=== PATIENT | male | born 1950 | race Caucasian/White ===

== ENCOUNTER 2022-01-03 10:24 | Emergency (ER) | payer MEDICARE, BC ==
[~2022-01-03] VITALS: Ht 170.2 cm; Wt 100.0 kg
[2022-01-03] MEDS ORDERED: ALLOPURINOL300 MG PO (10:53)
[2022-01-03] MEDS ORDERED: TAMSULOSIN0.4 MG PO (10:54)
[2022-01-03] MEDS ORDERED: KLOR-CON M2020 MEQ PO (10:54)
[2022-01-03] MEDS ORDERED: DITROPAN XL10 MG PO (10:55)
[2022-01-03] MEDS ORDERED: GLIPIZIDE ER5 MG PO (10:55)
[2022-01-03] MEDS ORDERED: ZETIA10 MG PO (10:55)
[2022-01-03] MEDS ORDERED: PROAIR DIG108 MCG/AC (10:56)
[2022-01-03] MEDS ORDERED: LORATADINE10 M1 PO (10:57)
[2022-01-03] MEDS ORDERED: CRESTOR40 MG PO (10:57)
[2022-01-03] MEDS ORDERED: FLONASE SE27.5 MCG/S (10:58)
[2022-01-03] MEDS ORDERED: MUCINEX1200 MG PO (10:58)
[2022-01-03] MEDS ORDERED: FENOFIBRATE145 MG PO (10:58)
[2022-01-03] MEDS ORDERED: ALBUTEROL1 IN (10:59)
[2022-01-03] MEDS ORDERED: NITROGLYCERIN0.4 MG (11:00)
[2022-01-03] MEDS ORDERED: LANTUS100 UNIT SC (11:01)
[2022-01-03] MEDS ORDERED: FUROSEMIDE20 MG PO (11:02)
[2022-01-03] MEDS ORDERED: HUMALOG100 UNIT/M SC (11:02)
[2022-01-03] MEDS ORDERED: OMEPRAZOLE DR40 MG (11:03)
[2022-01-03] MEDS ORDERED: KAPSPARGO SPRIN25 MG (11:03)
[2022-01-03] MEDS ORDERED: CVS GAS RELIEF (11:03)
[2022-01-03] MEDS ORDERED: TRAZODONE50 MG PO (11:04)
[2022-01-03] MEDS ORDERED: MONTELUKAST SOD10 MG PO (11:04)
[2022-01-03] MEDS ORDERED: ALFUZOSIN HCL E10 MG PO (11:04)
[2022-01-03] MEDS ORDERED: JARDIANCE25 MG (11:05)
[2022-01-03] MEDS ORDERED: MULTI VIT PO (11:05)
[2022-01-03 13:11] LABS: HEMATOCRIT 41.1 % (39.0-50.0); HEMOGLOBIN 12.9 g/dl (14.0-18.0); IMMATURE GRANULOCYTES 0.3 % (0.0-5.0); MEAN CORPUSCULAR HGB 31.1 pG CALC (26.0-32.0); MEAN CORPUSCULAR HGB CONC 31.4 g/dL CAL (32.0-36.0); NEUT# 4.01 thou/uL (1.82-7.42); RED BLOOD COUNT 4.15 mill/uL (4.70-6.10); RED CELL DISTRI WIDTH 14.2 % (11.5-15.5)
[2022-01-03 13:21] LABS: ALBUMIN 3.9 g/dL (3.2-5.0); ALKALINE PHOSPHATASE 79 u/l (38-126); ANION GAP 13 (6-22 (CALC)); BILIRUBIN, TOTAL 0.3 mg/dL (0.0-1.4); BUN 25 mg/dL (8-23); BUN/CREATININE RATIO 15 (12-20 (CALC)); CARBON DIOXIDE 27 mmol/l (22-30); CHLORIDE 106 mmol/l (95-108); CREATININE 1.7 mg/dL (0.7-1.3); GFR 40 ML/MIN (>=60 (CALC)); GFR FOR AFR.AMER. 48 ML/MIN (>=60 (CALC)); POTASSIUM 4.5 mmol/l (3.5-5.1); SGOT/AST 25 u/l (19-48); SODIUM 141 mmol/l (137-146)
[2022-01-03 13:31] VITALS: BP 134/85
[2022-01-03] MEDS ORDERED: ZPAK PO (16:44)
[2022-01-03] MEDS ORDERED: TESSALON PERLE100 MG PO (16:44)
[2022-01-03] MEDS ORDERED: HYCODAN1 ML PO (16:44)
[2022-01-03] MEDS ORDERED: ATROVENT H17 MCG/ACT IN (16:48)
== END 2022-01-03 17:05 | disposition home or self-care (01) ==
LOC: ED 10:24
PROVIDERS: Emergency Medicine
DX: J44.9 Chronic obstructive pulmonary disease, unspecified (principal); I13.0 Hypertensive heart and chronic kidney disease with heart failure and stage 1 through stage 4 chronic kidney disease, or unspecified chronic kidney disease; I50.9 Heart failure, unspecified; E11.22 Type 2 diabetes mellitus with diabetic chronic kidney disease; N18.30 Chronic kidney disease, stage 3 unspecified; E78.5 Hyperlipidemia, unspecified; M10.9 Gout, unspecified; Z95.1 Presence of aortocoronary bypass graft; Z79.84 Long term (current) use of oral hypoglycemic drugs; Z79.4 Long term (current) use of insulin; Z20.822 Contact with and (suspected) exposure to COVID-19

== ENCOUNTER 2022-01-15 09:05 | Inpatient (IN) | payer MEDICARE, BC ==
[~2022-01-15] VITALS: Ht 170.2 cm; Wt 98.4 kg
[~2022-01-15 09:05] MED LIST: ALBUTEROL1 IN; ALFUZOSIN HCL E10 MG PO; ALLOPURINOL300 MG PO; ATROVENT H17 MCG/ACT IN; CRESTOR40 MG PO; CVS GAS RELIEF; DITROPAN XL10 MG PO; FENOFIBRATE145 MG PO; FLONASE SE27.5 MCG/S; FUROSEMIDE20 MG PO; GLIPIZIDE ER5 MG PO; HUMALOG100 UNIT/M SC; HYCODAN1 ML PO; JARDIANCE25 MG; KAPSPARGO SPRIN25 MG; KLOR-CON M2020 MEQ PO; LANTUS100 UNIT SC; LORATADINE10 M1 PO; MONTELUKAST SOD10 MG PO; MUCINEX1200 MG PO; MULTI VIT PO; NITROGLYCERIN0.4 MG; OMEPRAZOLE DR40 MG; PROAIR DIG108 MCG/AC; TAMSULOSIN0.4 MG PO; TESSALON PERLE100 MG PO; TRAZODONE50 MG PO; ZETIA10 MG PO; ZPAK PO
--- NOTE | 2022-01-15 09:24 | NUR ---
PATIENT TO ROOM 15 VIA WHEELCHAIR
[2022-01-15 11:02] LABS: HEMATOCRIT 39.2 % (39.0-50.0); HEMOGLOBIN 12.6 g/dl (14.0-18.0); IMMATURE GRANULOCYTES 0.4 % (0.0-5.0); MEAN CELL VOLUME 97.5 fL CALC (80.0-100.0); MEAN CORPUSCULAR HGB 31.3 pG CALC (26.0-32.0); MEAN CORPUSCULAR HGB CONC 32.1 g/dL CAL (32.0-36.0); NEUT# 6.42 thou/uL (1.82-7.42); RED BLOOD COUNT 4.02 mill/uL (4.70-6.10); RED CELL DISTRI WIDTH 14.2 % (11.5-15.5)
[2022-01-15 11:08] LABS: ALBUMIN 4.1 g/dL (3.2-5.0); BILIRUBIN, TOTAL 0.5 mg/dL (0.0-1.4); CREATININE 1.8 mg/dL (0.7-1.3); POTASSIUM 4.2 mmol/l (3.5-5.1); TOTAL PROTEIN 6.9 g/dL (6.3-8.2)
[2022-01-15 11:27] LABS: URINE BILIRUBIN - DIPSTICK NEGATIVE (NEGATIVE); URINE BLOOD DIPSTICK NEGATIVE (NEGATIVE); URINE COLOR YELLOW; URINE GLUCOSE - DIPSTICK >=1000 mg/dL (NEGATIVE); URINE KETONE NEGATIVE (NEGATIVE); URINE LEUK ESTERASE NEGATIVE (NEGATIVE); URINE PROTEIN - DIPSTICK NEGATIVE (NEG-TRACE); URINE UROBILINOGEN - DIPSTICK 0.2 E.U./dL (0.2)
[2022-01-15 11:29] LABS: URINE NITRITE - DIPSTICK NEGATIVE (Negative)
--- NOTE | 2022-01-15 12:41 | NUR ---
Reassessment of patient completed. No distress noted.
--- NOTE | 2022-01-15 13:07 | NUR ---
Reassessment of patient completed. No distress noted.
--- NOTE | 2022-01-15 19:30 | NUR ---
Reassessment of patient completed. No distress noted.
--- NOTE | 2022-01-15 20:02 | NUR ---
Reassessment of patient completed. No distress noted.
--- NOTE | 2022-01-15 21:00 | NUR ---
Reassessment of patient completed. No distress noted.
--- NOTE | 2022-01-15 22:00 | NUR ---
Reassessment of patient completed. No distress noted.
--- NOTE | 2022-01-15 23:00 | NUR ---
Reassessment of patient completed. No distress noted.
[2022-01-15 23:33] VITALS: BP 116/75
--- NOTE | 2022-01-15 23:37 | NUR ---
REPORT CALLED TO FLOOR PT TRANSFERRED VIA WC
--- NOTE | 2022-01-16 | NUR ---
PATIENT ADMITTED FROM ER VIA WHEELCHAIR WITH ER STAFF IN ATTENDANCE-O2 VIA NASAL CANNULA IN PLACE. PATIENT MIN ASSIST TO BED. AWAKE ALERT AND ORIENTEDX3. PATIENT STATES THAT HE IS A SNOWBIRD AND HE HAS HAD INCREASING SOB OVER THE LAST COUPLE OF WEEKS WELL INCREASED SWELLING IN HIS FEET AND HE CALLED HIS MD IN [facility] WHO TOLD HIM TO COME TO THE ER. PATIENT ADMITTED FOR CHF, COPD. PATIENT DOES USE O2 AT HOME-USUALLY AT 2LPM. O2 SAT IS 94% AT THIS TIME WITH O2 AT 3LPM. TELE MONITOR IN PLACE READING SR-79 1SR DEGREE AVB. PATIENT WITH PERSISTANT NON-PRODUCTIVE COUGH. PATIENT WITH BLE SWELLING-1+-PT STATES MUCH IMPROVED SINCE COMING TO THE ER AND GETTING DIURETICS. ENCOURAGED PATIENT TO ELEVATED FEET WHEN POSSIBLE. ABD IS SOFT WITH LAST BM-01/15/22. DENIES ANY DIFFICULTY WITH URINATION. INSTRUCTED THAT WE NEED TO MEASURE URINE IN U RINAL FOR STRICTI&O-WILL TO REINFORCE WITH PATIENT. DAILY WEIGHTS. GLUCOSE MONITOR WAS 210. OFFER HEALTHY CHOICE MEAL BUT PATIENT DECLINED AT THIS TIME. ORIENTED PATIENT TO ROOM AND SURROUNDINGS. INSTRUCTED ON USE OF NURSE CALL LIGHT AND TV REMOTE. SAFETY PRECAUTIONS REINFORCED. TROP WAS DRAWN AND WAS NEG. CALL LIGHT IN REACH. WILL CONT TO MONITOR
[2022-01-16 04:00] VITALS: BP 102/55
--- NOTE | 2022-01-16 04:20 | NUR ---
PATIENT RESTING IN BED AT THIS TIME WITH O2 VIA NASAL CANNULA IN PLACE. RESPS ARE EVEN AND UNLABORED AT THIS TIME. TELE MONITOR IN PLACE WITH LAST READING BEING SR-95 WITH 1ST DEGREE AVB. SALINE LOCK TO LEFT AC INTACT. CALL LIGHT IN REACH. WILL CONT TO MONITOR.
[2022-01-16 06:26] LABS: HEMATOCRIT 40.1 % (39.0-50.0); HEMOGLOBIN 12.9 g/dl (14.0-18.0); MEAN CELL VOLUME 97.8 fL CALC (80.0-100.0); MEAN CORPUSCULAR HGB 31.5 pG CALC (26.0-32.0); MEAN CORPUSCULAR HGB CONC 32.2 g/dL CAL (32.0-36.0); RED BLOOD COUNT 4.1 mill/uL (4.70-6.10); RED CELL DISTRI WIDTH 14.2 % (11.5-15.5)
[2022-01-16 06:54] LABS: CHOLESTEROL HDL RATIO 3.8 (<4.4 (CALC)); MAGNESIUM 2.4 mg/dL (1.6-2.3); POTASSIUM 4.4 mmol/l (3.5-5.1)
--- NOTE | 2022-01-16 07:25 | NUR ---
Patient is screened for intervention and may benefit from PT consult if medical agrees
[2022-01-16 08:34] VITALS: BP 132/81
--- NOTE | 2022-01-16 08:34 | NUR ---
PT SITTING IN BED WATCHING TV. A&O X3. O2 VIA NC @3L IN PLACE. PT REPORTS USING IT PRN AT HOME WHEN SOB OCCURS. EXERTIONAL SOB NOTED. DIMINISHED BREATH SOUNDS HEARD UPON AUSCULTATION. ACTIVE BOWEL SOUNDS X4 QUADRANTS. 600 CC OF CLEAR YELLOW URINE EMPTIED FROM URINAL. #20G LAC HEALTHY AND PATENT. PALLETIZER IN PLACE. MED REC TO BE UPDATED. ASSESSMENT COMPLETED. DISCUSSED POC. CALL LIGHT WITHIN REACH.
[2022-01-16 10:47] VITALS: BP 111/79
[2022-01-16 15:07] VITALS: BP 120/57
--- NOTE | 2022-01-16 17:21 | NUR ---
PT PROVIDED WITH HOT BLACK TEA PER REQUEST. NO OTHER NEEDS AT THIS TIME. CALL LIGHT WITHIN REACH.
[2022-01-16 19:00] VITALS: BP 136/53
--- NOTE | 2022-01-16 19:40 | NUR ---
PT SITTING ON SIDE OF BED, NO SIGNS OF DISTRESS NOTED, RESP EVEN AND UNLABORED. PT ON O2 3L NC, PT STATES HE IS HOME DEPENDENT. 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 RT CALLED TO BEDSIDE FOR NEB TX, SKIN INTACT. TRACE EDEMA TO BLE, PT STATES IT HAS "GOTTEN BETTER". ASSESSMENT REVIEW COMPLETED, CALL LIGHT IN REACH,CONTINUE TO MONITOR.
--- NOTE | 2022-01-16 21:40 | NUR ---
PT SITTING ON SIDE OF BED WATCHING TV, PT MEDICATED PER MAR. NO SIGNS OF DISTRESS NOTED, RESP EVEN AND UNLABORED. CALL LIGHT IN REACH,CONTINUE TO MONITOR.
--- NOTE | 2022-01-16 23:43 | NUR ---
PT SITTING ON SIDE OF BED, COUGHING. PT GIVEN ROBITUSSIN, NO SIGNS OF DISTRESS NOTED, RESP EVEN AND UNLABORED.PT REQUESTING HOT TEA, PROVIDED REQUESTED. CALL LIGHT IN REACH,CONTINUE TO MONITOR.
[2022-01-17] VITALS: BP 129/64
[2022-01-17 04:00] VITALS: BP 131/66
--- NOTE | 2022-01-17 05:15 | NUR ---
PT RESTING IN BED, NO SIGNS OF DISTRESS NOTED, RESP EVEN AND UNLABORED. PT MEDICATED WITH BUMEX, PT VOICES NO NEEDS OR COMPLAINTS AT THIS TIME, CALL LIGHT IN REACH,CONTINUE TO MONITOR.
[2022-01-17 06:00] LABS: HEMATOCRIT 37.8 % (39.0-50.0); HEMOGLOBIN 12.2 g/dl (14.0-18.0); MEAN CELL VOLUME 98.7 fL CALC (80.0-100.0); MEAN CORPUSCULAR HGB 31.9 pG CALC (26.0-32.0); MEAN CORPUSCULAR HGB CONC 32.3 g/dL CAL (32.0-36.0); RED BLOOD COUNT 3.83 mill/uL (4.70-6.10); RED CELL DISTRI WIDTH 14.4 % (11.5-15.5)
[2022-01-17 06:20] LABS: CREATININE 1.8 mg/dL (0.7-1.3); MAGNESIUM 2.5 mg/dL (1.6-2.3); POTASSIUM 4.5 mmol/l (3.5-5.1)
[2022-01-17] MEDS ORDERED: TOPROL XL25 M1 PO (07:50)
[2022-01-17] MEDS ORDERED: ZETIA10 MG PO (07:51)
[2022-01-17] MEDS ORDERED: GLIPIZIDE ER5 MG PO (07:52)
--- NOTE | 2022-01-17 09:03 | NUR ---
PT SITTING ON THE SIDE OF THE BED. A&O X3. NO DISTRESS NOTED. O2 VIA NC @3L IN PLACE. CORASE/DIMINISHED BREATH SOUNDS UPON AUSCULTATION. ACTIVE BOWEL SOUNDS X4 QUADRANTS. EDEMA IMPROVED IN BLE. OFFICE ASST COUGH NOTED; PT REPORTS SOME IMPROVEMENT WITH THE COUGH. IV HEALTHY AND PATENT. 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 ASSESSMENT COMPLETED. DISCUSSED POC. CALL LIGHT WITHIN REACH.
[2022-01-17 09:04] VITALS: BP 122/69
[2022-01-17 10:52] VITALS: BP 102/53
--- NOTE | 2022-01-17 11:31 | NUR ---
PT SITTING IN RECLINER. NO NEEDS AT THIS TIME. O2 REMAINS UNCHANGED. CALL LIGHT WITHIN REACH.
[2022-01-17 16:32] VITALS: BP 150/85
--- NOTE | 2022-01-17 18:09 | NUR ---
PT SITTING IN RECLINER. O2 REMAINS UNCHANGED. NO NEEDS AT THIS TIME. CALL LIGHT WITHIN REACH.
[2022-01-17 19:58] VITALS: BP 117/47
--- NOTE | 2022-01-17 20:10 | NUR ---
PT SITTING ON SIDE OF BED, NO SIGNS OF DISTRESS NOTED, RESP EVEN AND UNLABORED. PT ALERT AND ORIENTED X3, DISCUSSED POC, PT DENIES AND NEEDS OR COMPLAINTS AT THIS TIME. O2 3L NC, ASSESSMENT REVIEW COMPLETED, PT MEDICATED PER MAR, EDEMA NOTED TO BLE ENCOURAGED PT TO ELEVATE EXTREMITIES, CALL LIGHT IN REACH,CONTINUE TO MONITOR.
[2022-01-18] VITALS: BP 124/73
--- NOTE | 2022-01-18 00:32 | NUR ---
PT CALLED REQUESTING LOZENGE, NO SIGNS OF DISTRESS NOTED, RESP EVEN AND UNLABORED. CALL LIGHT IN REACH,CONTINUE TO MONITOR.
[2022-01-18 03:56] VITALS: BP 112/61
--- NOTE | 2022-01-18 04:00 | NUR ---
PT RESTING IN BED, NO SIGNS OF DISTRESS NOTED, RESP EVEN AND UNLABORED. PT VOICES NO NEEDS OR COMPLAINTS AT THIS TIME. CALL LIGHT IN REACH, CONTINUE TO MONITOR.
[2022-01-18 05:35] LABS: CREATININE 2.2 mg/dL (0.7-1.3); POTASSIUM 4.4 mmol/l (3.5-5.1)
[2022-01-18 08:44] VITALS: BP 126/65
[2022-01-18 15:48] VITALS: BP 145/78
--- NOTE | 2022-01-18 20:00 | NUR ---
RECEIVED REPORT FROM NURSE BRET, PATIENT RESTING IN BEDM WATCHING TV, ON O2 @ 3 LPM VIA NC, TELEMETRY ST 104, NON PRODUCTIVE COUGH, COARSE LUNG SOUNDS, HAS SALINE LOCK ON LAC, PATENT FLUSHES WELL, ACTIVE BOWEL SOUNDS 01/17, CALL LIGHT AT REACH.
[2022-01-18 20:23] VITALS: BP 127/74
[2022-01-18 23:17] VITALS: BP 132/73
--- NOTE | 2022-01-18 23:18 | NUR ---
PATIENT RESTING IN BED EYES CLOSED, REMAINS ON O2 @ 3LPM VIA NC, STILL WITH NON PRODUCTIVE COUGH, BREATHING UNLABORED, CALL LIGHT AT REACH.
--- NOTE | 2022-01-19 02:25 | NUR ---
PATIENT HAS COUGHING EPISODES, PRN COUGH MEDICATION, LOZENGE AND BREATHING TREATMENT GIVEN.
--- NOTE | 2022-01-19 04:00 | NUR ---
PATIENT SITTING IN CHAIR REMAINS ON O2 @ 3LPM VIA NC, VITAL SIGNS TAKEN, PATIENT WEIGHED AND RECORDED CURRENTLY WATCHING TV, CALL LIGHT AT REACH.
[2022-01-19 04:35] VITALS: BP 115/70
[2022-01-19 05:19] LABS: HEMATOCRIT 40.1 % (39.0-50.0); HEMOGLOBIN 12.5 g/dl (14.0-18.0); MEAN CELL VOLUME 99.8 fL CALC (80.0-100.0); MEAN CORPUSCULAR HGB 31.1 pG CALC (26.0-32.0); MEAN CORPUSCULAR HGB CONC 31.2 g/dL CAL (32.0-36.0); RED BLOOD COUNT 4.02 mill/uL (4.70-6.10); RED CELL DISTRI WIDTH 14.4 % (11.5-15.5)
[2022-01-19 05:30] LABS: CREATININE 1.7 mg/dL (0.7-1.3); MAGNESIUM 2.5 mg/dL (1.6-2.3); POTASSIUM 4.9 mmol/l (3.5-5.1)
--- NOTE | 2022-01-19 07:00 | NUR ---
SHIFT CHANGE REPORT, PT AWAKE ALERT AND ORIENTED SITTING UP AT BEDSIDE, SOB ON EXERTION, O2 @ 3L VIA NC IN PLACE, TELE MONITOR IN PLACE, CALL LYONS IN REACH, WILL CONTINUE TO MONITOR AND ADDRESS NEEDS.
[2022-01-19 08:44] VITALS: BP 144/65
[2022-01-19 10:27] VITALS: BP 112/71
--- NOTE | 2022-01-19 11:46 | NUR ---
RELAXING IN ROOM, MEDICAL TEAM ROUNDED AND DISCUSSES PLAN OF CARE, PT ANXIOUS TO GO HOME BUT ADVISED MD WILL WRITE ORDERS IN TMELY MANNER WHICH WILL BE PROCESSED BY NURSE, ALL NEEDS ADDRESSED.
[2022-01-19] MEDS ORDERED: IPRATROPIU0.5 MG/3 M NEB (12:27)
[2022-01-19] MEDS ORDERED: PREDNISONE10 MG PO (12:28)
[2022-01-19] MEDS ORDERED: Levaquin PO (12:31)
[2022-01-19] MEDS ORDERED: ROBITUSSIN AC10 ML PO (12:34)
--- NOTE | 2022-01-19 16:22 | NUR ---
Discharge instructions given. Patient verbalizes understanding of same. Discharged in stable condition via Wheelchair to Home with spouse. All belongings sent with pt. PT ANXIOUS TO LEAVE BEFORE RIDE ARRIVES AND REQUEST TO BE TAKEN OUTSIDE.
== END 2022-01-19 14:10 | disposition home or self-care (01) | DRG 190 ==
LOC: ED 09:05 → ED-I 18:20 → ED 19:19 → MS2 19:20
PROVIDERS: Emergency Medicine; Nurse Practitioner; ADMIT Internal Medicine; ATTEND Internal Medicine
DX: J43.9 Emphysema, unspecified (principal); J96.21 Acute and chronic respiratory failure with hypoxia; I13.0 Hypertensive heart and chronic kidney disease with heart failure and stage 1 through stage 4 chronic kidney disease, or unspecified chronic kidney disease; I50.9 Heart failure, unspecified; E11.22 Type 2 diabetes mellitus with diabetic chronic kidney disease; N18.30 Chronic kidney disease, stage 3 unspecified; E78.5 Hyperlipidemia, unspecified; M10.9 Gout, unspecified; Z79.84 Long term (current) use of oral hypoglycemic drugs; Z79.4 Long term (current) use of insulin; Z95.1 Presence of aortocoronary bypass graft; Z86.73 Personal history of transient ischemic attack (TIA), and cerebral infarction without residual deficits; Z20.822 Contact with and (suspected) exposure to COVID-19
CPT/HCPCS: A9540; G0378; J1650